=== PATIENT | male | born 1965 | race Two or more races ===

== ENCOUNTER 2018-07-14 07:06 | Emergency (ER) | payer OTHER, SELFPAY ==
[~2018-07-14] VITALS: Ht 175.3 cm; Wt 57.0 kg
--- NOTE | 2018-07-14 07:44 | NUR ---
PT PRESENTED TO ED WITH LEFT ABD WOUND FOR A FEW DAYS. PT STATES HE IS A DIABETIC AND TAKES NO MEDS AND STOPPED SEEING HIS DOCTOR A FEW YEARS AGO. PT APPEARS CACHETIC AND PALE APPERANCE. PT PLACED ON BP AND CONT. PULSE OXIMETER. ASSESSMENT COMPLETED. CALL LIGHT IN REACH.
[2018-07-14] MEDS ORDERED: LIDOCAINE-MPF 1%, 5ML ONE (07:59)
[2018-07-14] MEDS ORDERED: IBUPROFEN 600 MG TABLET ONE (07:59)
[2018-07-14] MEDS ORDERED: LIDOCAINE 1%, 10ML INFIL ONE (08:00)
[2018-07-14] MEDS ORDERED: IBUPROFEN 600 MG TABLET PO ONE (08:00)
[2018-07-14 08:04] LABS: BASOPHILS # (AUTO) 0.12 x10^3/uL (0-0.1); BASOPHILS % (AUTO) 1 % (0-1); EOSINOPHILS # (AUTO) 0.07 x10^3/uL (0-0.4); EOSINOPHILS % (AUTO) 1 % (1-7); LYMPHOCYTES # (AUTO) 1.65 x10^3/uL (1-3.4); LYMPHOCYTES % (AUTO) 17 % (22-44); MD NO; MEAN CORPUSCULAR HEMOGLOBIN 30.9 pg (27.5-34.5); MEAN CORPUSCULAR HGB CONC 33.7 g/dL (33.2-36.2); MEAN CORPUSCULAR VOLUME 91.7 fL (81-97); MEAN PLATELET VOLUME 8.9 fL (7.4-10.4); MONOCYTES # (AUTO) 0.49 x10^3/uL (0.2-0.8); MONOCYTES % (AUTO) 5 % (2-9); NEUTROPHILS # (AUTO) 7.24 x10^3/uL (1.8-6.8); NEUTROPHILS % (AUTO) 76 % (42-75); PLATELET COUNT 274 x10^3/uL (130-400); RED BLOOD COUNT 4.26 x10^6/uL (4.38-5.82); RED CELL DISTRIBUTION WIDTH 14.8 % (9.4-14.8)
[2018-07-14 08:25] LABS: ALBUMIN 3.4 g/dL (3.4-5.0); ANION GAP 11 mmol/L (5-15); CALCIUM 8.4 mg/dL (8.5-10.1); CHLORIDE 103 mmol/L (98-107)
[2018-07-14 08:28] LABS: CREATININE 0.66 mg/dL (0.7-1.3)
--- NOTE | 2018-07-14 08:56 | NUR ---
PT RESTING IN BED. PER LAB RESULTS GLUCOSE 499.
[2018-07-14] MEDS ORDERED: CEFAZOLIN PMX 1GM/50ML 50 ML IV ONE (09:30)
[2018-07-14] MEDS ORDERED: SODIUM CHLORIDE 0.9% 1,000ML IVBOLUS ONE (09:30)
--- NOTE | 2018-07-14 09:52 | NUR ---
IV STARTED AND MEDICATIONS GIVEN PER MD ORDERS
[2018-07-14] MEDS ORDERED: CEFAZOLIN PMX 1GM/50ML 50 ML ONE (09:54)
[2018-07-14 10:47] LABS: HEMOGLOBIN A1C 14.3 % (4.2-6.3)
--- NOTE | 2018-07-14 11:29 | NUR ---
BLOOD GLUCOSE RECHECKED AT 308
--- NOTE | 2018-07-14 11:30 | NUR ---
Eli michael in [facility] - 07/14/18 at 1130 by NOY BLOOD GLUCOSE 304
--- NOTE | 2018-07-14 11:30 | NUR ---
BLOOD GLUCOSE 308
[2018-07-14 12:24] VITALS: BP 90/52
--- NOTE | 2018-07-14 12:26 | NUR ---
Patient/Caregiver given discharge instructions and they have confirmed that they understand the instructions. Patient ambulatory with steady gait.
== END 2018-07-14 12:26 | disposition home or self-care (01) ==
LOC: ED 08:08
DX: E11.65 Type 2 diabetes mellitus with hyperglycemia (principal); L72.3 Sebaceous cyst
CPT/HCPCS: 36415; 80048; 82040; 82962; 83036; 85025; 96365; 99283; J0690; J3490; J7030

== ENCOUNTER 2019-12-09 12:53 | Emergency (ER) | payer SELFPAY ==
[~2019-12-09] VITALS: Ht 177.8 cm; Wt 58.2 kg
[2019-12-09 14:53] LABS: BASOPHILS % (AUTO) 2 % (0-1); EOSINOPHILS # (AUTO) 0.06 x10^3/uL (0-0.4); EOSINOPHILS % (AUTO) 1 % (1-7); LYMPHOCYTES # (AUTO) 3.01 x10^3/uL (1-3.4); LYMPHOCYTES % (AUTO) 26 % (22-44); MD NO; MEAN CORPUSCULAR HEMOGLOBIN 31.2 pg (27.5-34.5); MEAN CORPUSCULAR HGB CONC 32.9 g/dL (33.2-36.2); MEAN PLATELET VOLUME 8.3 fL (7.4-10.4); MONOCYTES # (AUTO) 0.52 x10^3/uL (0.2-0.8); MONOCYTES % (AUTO) 4 % (2-9); NEUTROPHILS # (AUTO) 7.85 x10^3/uL (1.8-6.8); NEUTROPHILS % (AUTO) 68 % (42-75); PLATELET COUNT 324 x10^3/uL (130-400); RED BLOOD COUNT 4.11 x10^6/uL (4.38-5.82); RED CELL DISTRIBUTION WIDTH 14.9 % (9.4-14.8)
[2019-12-09 14:55] LABS: ALANINE AMINOTRANSFERASE 64 U/L (12-78); ALBUMIN 3.2 g/dL (3.4-5.0); ANION GAP 6 mmol/L (5-15); CALCIUM 8.3 mg/dL (8.5-10.1); CHLORIDE 100 mmol/L (98-107); CREATININE 0.73 mg/dL (0.7-1.3)
[2019-12-09 14:58] LABS: ALKALINE PHOSPHATASE 129 U/L (45-117); BILIRUBIN,TOTAL 0.3 mg/dL (0.2-1.0); TOTAL PROTEIN 6.3 g/dL (6.4-8.2)
--- NOTE | 2019-12-09 15:26 | NUR ---
FEED MILLER: PT TO ROOM FROM LOBBY
--- NOTE | 2019-12-09 15:36 | NUR ---
Pt ambulatory to bathroom with steady gait.
[2019-12-09 15:57] VITALS: BP 101/71
--- NOTE | 2019-12-09 16:30 | NUR ---
Pt resting in bed with eyes closed, resp even and unlabored, NADN.
--- NOTE | 2019-12-09 17:28 | NUR ---
Nahid GOLD at bedside to evaluate pt.
--- NOTE | 2019-12-09 17:40 | NUR ---
Dr. Sheikh at bedside to evaluate pt.
[2019-12-09] MEDS ORDERED: INSULIN SINGLE DOSE, ER ONE (17:48)
--- NOTE | 2019-12-09 17:49 | NUR ---
Pt medicated per MAR, denies other needs.
[2019-12-09] MEDS ORDERED: INSULIN REGULAR 100 UNITS/ML, 3ML VIAL SQ-INSULIN ONE (18:00)
== END 2019-12-09 18:29 | disposition home or self-care (01) ==
LOC: ED 14:48
DX: R60.0 Localized edema (principal); E11.65 Type 2 diabetes mellitus with hyperglycemia; R06.9 Unspecified abnormalities of breathing; M79.604 Pain in right leg; M79.605 Pain in left leg; F17.200 Nicotine dependence, unspecified, uncomplicated
CPT/HCPCS: 36415; 71045; 80053; 82962; 83880; 85025; 93970; 96372; 99285; J1815